=== PATIENT | female | born 1930 | race Caucasian/White ===

== ENCOUNTER 2016-06-21 15:33 | Inpatient (IN) | payer OTHER ==
[~2016-06-21] VITALS: Ht 152.4 cm; Wt 66.3 kg
[~2016-06-21 15:33] MED LIST: DOLACET 5/5001 EACH PO; FOSAMAX40 MG PO; FOSAMAX70 MG PO; LOTENSIN10 MG PO; LOTENSIN20 MG PO; WELLBUTRIN SR100 MG PO; WELLBUTRIN SR150 MG PO
[2016-06-21 16:47] LABS: HEMATOCRIT 37.3 % (36.0-46.0); MCH 29.2 PG (29.0-34.0); MCHC 32.7 G/DL (30.0-36.0); MCV 89.2 FL (83-99); MEAN PLAT.VOLUME 10.6 uM^3 (9.5-12.4); PLATELET COUNT 239 K/uL (156-360); RBC DIS.WIDTH-CV 13.1 % (11.8-14.6); RBC DIS.WIDTH-SD 41.6 % (39-53); RED BLOOD COUNT 4.18 M/uL (3.80-5.20); WHITE BLOOD COUNT 8.5 K/uL (4.1-10.2)
[2016-06-21 17:01] LABS: CHLORIDE 109 mEq/L (99-109)
[2016-06-21 17:02] LABS: POTASSIUM 4.4 mEq/L (3.7-5.4); SODIUM 139 mEq/L (136-147)
[2016-06-21 17:04] LABS: GLUCOSE 175 mg/dL (70-99)
[2016-06-21 17:05] LABS: ANION GAP 13 MEQ/L (2-14)
[2016-06-21 17:06] LABS: TOTAL BILIRUBIN 0.5 mg/dL (0.0-1.0)
[2016-06-21 17:07] LABS: ALKALINE PHOSPHATASE 87 IU/L (3-129); GFR ESTIMATE (CALCULATED) 29 mL/min/
[2016-06-21 17:09] LABS: UREA NITROGEN (BUN) 45 mg/dL (9-23)
[2016-06-21 17:49] LABS: ADD MIUA? YES; BILIRUBIN NEGATIVE; BLOOD SMALL; COLOR YELLOW ((YELLOW)); GLUCOSE (STRIP) NEGATIVE; KETONES 5; LEUKOCYTES TRACE; NITRITE NEGATIVE; PROTEIN (STRIP) NEGATIVE; SPECIFIC GRAVITY 1.014 (1.000-1.030); UROBILINOGEN 0.2 MG/DL (0.2-1.0)
[2016-06-21 18:02] LABS: BACTERIA RARE /HPF; EPITHELIAL CELLS RARE /HPF; HYALINE CASTS 0-5 /LPF; MUCUS TRACE /LPF; RED BLOOD CELLS 0-5 /HPF (0-5)
[2016-06-21] MEDS ORDERED: KEFLEX500 MG PO (20:23)
[2016-06-21] MEDS ORDERED: NORCO 5/3251 TABLET PO (20:23)
[2016-06-21] MEDS ORDERED: WELLBUTRIN XL150 MG PO (22:11)
[2016-06-21] MEDS ORDERED: LOPRESSOR50 MG PO (22:12)
[2016-06-21] MEDS ORDERED: ZOCOR40 MG PO (22:13)
[2016-06-22 07:31] LABS: TROP-I INTERPRETATION NEGATIVE; TROPONIN-I < 0.01 ng/mL (0.0-0.30)
[2016-06-22 10:16] LABS: HEMATOCRIT 36.5 % (36.0-46.0); MCH 29.5 PG (29.0-34.0); MCHC 32.6 G/DL (30.0-36.0); MCV 90.3 FL (83-99); MEAN PLAT.VOLUME 11.4 uM^3 (9.5-12.4); PLATELET COUNT 213 K/uL (156-360); RBC DIS.WIDTH-CV 13.3 % (11.8-14.6); RED BLOOD COUNT 4.04 M/uL (3.80-5.20)
[2016-06-22 10:26] LABS: CHLORIDE 110 mEq/L (99-109); POTASSIUM 4.7 mEq/L (3.7-5.4); SODIUM 139 mEq/L (136-147)
[2016-06-22 10:27] LABS: GLUCOSE 156 mg/dL (70-99)
[2016-06-22 10:29] LABS: ANION GAP 10 MEQ/L (2-14)
[2016-06-22 10:31] LABS: GFR ESTIMATE (CALCULATED) 35 mL/min/
[2016-06-22 10:32] LABS: UREA NITROGEN (BUN) 36 mg/dL (9-23)
[2016-06-22 13:00] VITALS: BP 136/81
[2016-06-22 13:14] LABS: TROP-I INTERPRETATION NEGATIVE; TROPONIN-I 0.02 ng/mL (0.0-0.30)
[2016-06-22 18:09] LABS: TROP-I INTERPRETATION NEGATIVE; TROPONIN-I 0.03 ng/mL (0.0-0.30)
[2016-06-22 20:00] VITALS: BP 126/70
[2016-06-22 23:48] VITALS: BP 157/79
[2016-06-23 04:00] VITALS: BP 150/80
[2016-06-23 08:09] LABS: ANION GAP 8 MEQ/L (2-14); CHLORIDE 109 MEQ/L (99-109); GFR ESTIMATE (CALCULATED) 42 mL/min/; GLUCOSE 138 mg/dL (70-99); POTASSIUM 4.4 MEQ/L (3.7-5.4); SAMPLE HEMOLYSIS CHECK 0; SAMPLE ICTERIC CHECK 0; SAMPLE LIPEMIA CHECK 0; SODIUM 140 MEQ/L (136-147); UREA NITROGEN (BUN) 30 mg/dL (9-23)
[2016-06-23 08:30] VITALS: BP 141/78
[2016-06-23 08:54] LABS: HEMATOCRIT 36.7 % (36.0-46.0); MCH 29.1 PG (29.0-34.0); MCHC 31.6 G/DL (30.0-36.0); MCV 92.2 FL (83-99); MEAN PLAT.VOLUME 11.1 uM^3 (9.5-12.4); PLATELET COUNT 235 K/uL (156-360); RBC DIS.WIDTH-CV 13.4 % (11.8-14.6); RED BLOOD COUNT 3.98 M/uL (3.80-5.20); WHITE BLOOD COUNT 9.4 K/uL (4.1-10.2)
[2016-06-23 11:30] VITALS: BP 138/81
[2016-06-23 16:30] VITALS: BP 129/59
[2016-06-23 20:00] VITALS: BP 121/78
[2016-06-24 00:19] VITALS: BP 135/63
[2016-06-24 05:07] VITALS: BP 148/67
[2016-06-24 07:40] VITALS: BP 136/90
[2016-06-24 09:26] LABS: HEMATOCRIT 35.2 % (36.0-46.0); MCH 29.4 PG (29.0-34.0); MCHC 32.1 G/DL (30.0-36.0); MCV 91.7 FL (83-99); PLATELET COUNT 218 K/uL (156-360); RBC DIS.WIDTH-CV 13.5 % (11.8-14.6); RBC DIS.WIDTH-SD 45.4 % (39-53); RED BLOOD COUNT 3.84 M/uL (3.80-5.20); WHITE BLOOD COUNT 7.7 K/uL (4.1-10.2)
[2016-06-24 09:56] LABS: ANION GAP 6 MEQ/L (2-14); CHLORIDE 107 MEQ/L (99-109); GFR ESTIMATE (CALCULATED) 42 mL/min/; GLUCOSE 139 mg/dL (70-99); POTASSIUM 4.4 MEQ/L (3.7-5.4); SAMPLE HEMOLYSIS CHECK 0; SAMPLE ICTERIC CHECK 0; SAMPLE LIPEMIA CHECK 0; SODIUM 138 MEQ/L (136-147); UREA NITROGEN (BUN) 24 mg/dL (9-23)
[2016-06-24 12:00] VITALS: BP 122/65
[2016-06-24 16:06] VITALS: BP 162/74
[2016-06-24 19:35] VITALS: BP 142/75
[2016-06-25] VITALS (7 sets, daily range): BP systolic 144–181; BP diastolic 65–94
[2016-06-25 09:48] LABS: HEMATOCRIT 37.8 % (36.0-46.0); MCH 29.8 PG (29.0-34.0); MCHC 32.5 G/DL (30.0-36.0); MCV 91.5 FL (83-99); MEAN PLAT.VOLUME 11.5 uM^3 (9.5-12.4); PLATELET COUNT 252 K/uL (156-360); RBC DIS.WIDTH-CV 13.4 % (11.8-14.6); RBC DIS.WIDTH-SD 44.9 % (39-53); RED BLOOD COUNT 4.13 M/uL (3.80-5.20); WHITE BLOOD COUNT 9.7 K/uL (4.1-10.2)
[2016-06-25 10:23] LABS: ANION GAP 7 MEQ/L (2-14); CHLORIDE 104 MEQ/L (99-109); GFR ESTIMATE (CALCULATED) 46 mL/min/; GLUCOSE 184 mg/dL (70-99); POTASSIUM 4.3 MEQ/L (3.7-5.4); SAMPLE HEMOLYSIS CHECK 0; SAMPLE ICTERIC CHECK 0; SAMPLE LIPEMIA CHECK 0; SODIUM 134 MEQ/L (136-147); UREA NITROGEN (BUN) 21 mg/dL (9-23)
[2016-06-25] MEDS ORDERED: ASPIR-LOW81 MG PO (11:31)
[2016-06-25] MEDS ORDERED: CYCLOBENZAPRINE5 MG PO (11:33)
[2016-06-25] MEDS ORDERED: TYLENOL REGULA325 MG PO (11:33)
[2016-06-25] MEDS ORDERED: HYDROCODON-ACE1 EAC7 PO (11:33)
[2016-06-25] MEDS ORDERED: ACIDOPHILUS LA1 EACH PO (13:50)
[2016-06-25] MEDS ORDERED: POLYETHYLENE GL17 GM PO (13:50)
[2016-06-25] MEDS ORDERED: KEFLEX500 MG PO (13:50)
[2016-06-25] MEDS ORDERED: ZOLPIDEM TARTRAT5 MG PO ×2 (13:50→14:00)
[2016-06-25] MEDS ORDERED: SENNA PLUS TAB1 EACH PO (13:50)
[2016-06-25] MEDS ORDERED: OXYCODONE HCL5 MG PO ×2 (13:50→14:00)
[2016-06-25 16:40] LABS: HEMATOCRIT 35.8 % (36.0-46.0); MCH 29.1 PG (29.0-34.0); MCHC 32.4 G/DL (30.0-36.0); MCV 89.9 FL (83-99); PLATELET COUNT 252 K/uL (156-360); RBC DIS.WIDTH-SD 42.8 % (39-53); RED BLOOD COUNT 3.98 M/uL (3.80-5.20); WHITE BLOOD COUNT 8.3 K/uL (4.1-10.2)
[2016-06-25 17:03] LABS: ANION GAP 9 MEQ/L (2-14); CHLORIDE 103 MEQ/L (99-109); GFR ESTIMATE (CALCULATED) 46 mL/min/; GLUCOSE 143 mg/dL (70-99); POTASSIUM 3.9 MEQ/L (3.7-5.4); SAMPLE HEMOLYSIS CHECK 0; SAMPLE ICTERIC CHECK 0; SAMPLE LIPEMIA CHECK 0; SODIUM 136 MEQ/L (136-147); UREA NITROGEN (BUN) 21 mg/dL (9-23)
[2016-06-26 00:01] VITALS: BP 187/91
[2016-06-26 04:53] VITALS: BP 193/88
[2016-06-26 08:16] VITALS: BP 137/96
[2016-06-26 17:34] VITALS: BP 143/64
[2016-06-26 19:17] LABS: ADD MIUA? YES; BILIRUBIN NEGATIVE; BLOOD SMALL; COLOR YELLOW ((YELLOW)); GLUCOSE (STRIP) NEGATIVE; KETONES NEGATIVE; LEUKOCYTES TRACE; NITRITE NEGATIVE; PROTEIN (STRIP) 100; SPECIFIC GRAVITY 1.019 (1.000-1.030); UROBILINOGEN 0.2 MG/DL (0.2-1.0)
[2016-06-26 19:30] LABS: BACTERIA RARE /HPF; EPITHELIAL CELLS RARE /HPF; GRANULAR CASTS 0-5 /LPF; HYALINE CASTS 0-5 /LPF; MUCUS TRACE /LPF; UCUL ADDED? NO
[2016-06-26 20:17] VITALS: BP 156/85
[2016-06-27 00:47] VITALS: BP 140/70
[2016-06-27 03:58] VITALS: BP 209/98
[2016-06-27 07:45] VITALS: BP 140/90
[2016-06-27 12:58] VITALS: BP 159/93
== END 2016-06-27 13:19 | DRG 948 ==
LOC: EME 15:33 → EDOF 06-22 00:15 → 3EAST 06-22 12:30
PROVIDERS: Hospitalist; Nurse Practitioner Family; Physician Assistant
PROC: 0HQ1XZZ Repair Face Skin, External Approach (ICD-10-PCS; principal; 2016-06-22)
DX: G89.11 Acute pain due to trauma (principal); S12.001A Unspecified nondisplaced fracture of first cervical vertebra, initial encounter for closed fracture; S12.100A Unspecified displaced fracture of second cervical vertebra, initial encounter for closed fracture; S02.2XXA Fracture of nasal bones, initial encounter for closed fracture; S01.81XA Laceration without foreign body of other part of head, initial encounter; S06.0X0A Concussion without loss of consciousness, initial encounter; W19.XXXA Unspecified fall, initial encounter; Y92.538 Other ambulatory health services establishments as the place of occurrence of the external cause; N39.0 Urinary tract infection, site not specified; N17.9 Acute kidney failure, unspecified; I48.1 Persistent atrial fibrillation; E11.22 Type 2 diabetes mellitus with diabetic chronic kidney disease; N18.2 Chronic kidney disease, stage 2 (mild); E11.65 Type 2 diabetes mellitus with hyperglycemia; G89.29 Other chronic pain; M54.5 Low back pain; J32.9 Chronic sinusitis, unspecified; M81.0 Age-related osteoporosis without current pathological fracture; M19.90 Unspecified osteoarthritis, unspecified site
CPT/HCPCS: 70450; 70486; 70551; 71020; 72125; 73110; 80048; 80048 91; 80053; 81003; 84484; 85027; 93005; 94799; 97530 GP; 99281; 99285; J0696; J2270; J2405; J7030; J7050

== ENCOUNTER → 2016-08-05 | Outpatient (CLI) | payer OTHER ==
[~2016-08-05] MED LIST changes: +ACIDOPHILUS LA1 EACH PO; +ASPIR-LOW81 MG PO; +CYCLOBENZAPRINE5 MG PO; +HYDROCODON-ACE1 EAC7 PO; +KEFLEX500 MG PO; +LOPRESSOR50 MG PO; +NORCO 5/3251 TABLET PO; +OXYCODONE HCL5 MG PO; +POLYETHYLENE GL17 GM PO; +SENNA PLUS TAB1 EACH PO; +TYLENOL REGULA325 MG PO; +WELLBUTRIN XL150 MG PO; +ZOCOR40 MG PO; +ZOLPIDEM TARTRAT5 MG PO
== END | disposition home or self-care (01) ==
LOC: RAD 13:30
DX: S12.000A Unspecified displaced fracture of first cervical vertebra, initial encounter for closed fracture (principal)
CPT/HCPCS: 72125

== ENCOUNTER 2016-08-15 11:06 | Emergency (ER) | payer OTHER ==
[~2016-08-15] VITALS: Ht 152.4 cm; Wt 55.0 kg
[2016-08-15 11:54] LABS: BASOPHIL COUNT 0.1 K/uL (0-0.1); EOSINOPHIL (%) 4.2 % (0-5); EOSINOPHIL COUNT 0.4 K/uL (0-0.3); HEMATOCRIT 34.6 % (36.0-46.0); IMMATURE GRANULOCYTE (%) 0.6 % (0.0-0.7); IMMATURE GRANULOCYTE COUNT 0.1 K/uL; INSTRUMENT ABS NEUTROPHIL CT 6.5 K/uL; LYMPHOCYTE COUNT 1.2 K/uL (1.0-2.8); MCH 28.6 PG (29.0-34.0); MCHC 31.5 G/DL (30.0-36.0); MCV 90.8 FL (83-99); MEAN PLAT.VOLUME 9.9 uM^3 (9.5-12.4); MONOCYTE (%) 6.8 % (3-12); MONOCYTE COUNT 0.6 K/uL (0-0.8); NEUTROPHIL (%) 73.8 % (45-76); NEUTROPHIL COUNT 6.5 K/uL (1.8-6.4); PLATELET COUNT 327 K/uL (156-360); RBC DIS.WIDTH-CV 13.9 % (11.8-14.6); RBC DIS.WIDTH-SD 46.6 % (39-53); RED BLOOD COUNT 3.81 M/uL (3.80-5.20); WHITE BLOOD COUNT 8.7 K/uL (4.1-10.2)
[2016-08-15 12:03] LABS: CHLORIDE 101 mEq/L (99-109); POTASSIUM 4.5 mEq/L (3.7-5.4); SODIUM 136 mEq/L (136-147)
[2016-08-15 12:05] LABS: GLUCOSE 135 mg/dL (70-99)
[2016-08-15 12:07] LABS: ANION GAP 11 MEQ/L (2-14); TOTAL BILIRUBIN 0.4 mg/dL (0.0-1.0)
[2016-08-15 12:09] LABS: ALKALINE PHOSPHATASE 78 IU/L (3-129); GFR ESTIMATE (CALCULATED) 35 mL/min/
[2016-08-15 12:10] LABS: UREA NITROGEN (BUN) 22 mg/dL (9-23)
[2016-08-15 12:13] LABS: LIPASE 27 U/L (1.0-51.0)
[2016-08-15 14:44] LABS: ADD MIUA? YES; BILIRUBIN NEGATIVE; BLOOD SMALL; COLOR YELLOW ((YELLOW)); GLUCOSE (STRIP) NEGATIVE; KETONES NEGATIVE; LEUKOCYTES MODERATE; NITRITE NEGATIVE; PROTEIN (STRIP) NEGATIVE; SPECIFIC GRAVITY 1.008 (1.000-1.030); UROBILINOGEN 0.2 MG/DL (0.2-1.0)
[2016-08-15 14:51] LABS: BACTERIA 2+ /HPF; EPITHELIAL CELLS RARE /HPF; MUCUS NONE SEEN /LPF; UCUL ADDED? YES
[2016-08-15] MEDS ORDERED: KEFLEX500 MG PO (14:57)
[2016-08-15 15:19] VITALS: BP 124/81
== END 2016-08-15 16:02 | disposition home or self-care (01) ==
LOC: EME 11:06
PROVIDERS: Emergency Medicine
DX: K59.00 Constipation, unspecified (principal); N39.0 Urinary tract infection, site not specified; R10.84 Generalized abdominal pain; E11.9 Type 2 diabetes mellitus without complications; I10 Essential (primary) hypertension; Z91.81 History of falling
CPT/HCPCS: 74176; 80053; 81003; 83605; 83690; 85025; 87086; 99281; 99284